=== PATIENT | female | born 1950 | race Caucasian/White ===

== ENCOUNTER 2018-05-23 10:33 | Emergency (ER) | payer MEDICARE, OTHER ==
--- NOTE | 2018-05-23 11:03 | ED ---
HPI Chest Pain - HPI Summary HPI Summary: Pt is a 68 y/o female who presents to the ED c/o CP. Shes had intermittent central CP since yesterday, that radiates to her back and left arm. The pain is described as heaviness. Pt also c/o hot flashes and burping described as indigestion. Pts father of [place] at 42 y/o. She is a former smoker. Pt denies taking any medications. PMHx HLD. - History of Current Complaint Chief Complaint: EDChestPainROMI Time Seen by Provider: 05/23/18 10:42 Hx Obtained From: Patient Onset/Duration: Started Days Ago - 1, Still Present Timing: Intermittent Current Severity: Moderate Pain Intensity: 3 Pain Scale Used: 0-10 Numeric Chest Pain Location: Mid Sternal Chest Pain Radiates: Yes Chest Pain Radiates To:: Back, Arm - left Character: Heaviness Associated Signs and Symptoms: Positive: Other: - burping, hot flashes - Allergy/Home Medications Allergies/Adverse Reactions: Allergies Allergy/AdvReac Type Severity Reaction Status Date / Time No Known Allergies Allergy Verified 05/23/18 10:37 PMH/Surg Hx/FS Hx/Imm Hx Endocrine/Hematology History: Denies: Hx Diabetes Cardiovascular History: Reports: Hx Hypercholesterolemia Denies: Hx Hypertension Infectious Disease History: No Infectious Disease History: Denies: Traveled Outside the [place] in Last 30 Days - Family History Known Family History: Positive: Cardiac Disease - [place] - Social History Alcohol Use: Occasionally Hx Substance Use: No Substance Use Type: Reports: None Hx Tobacco Use: Yes Smoking Status (MU): Former Smoker Review of Systems Positive: Other - Hot flashes Positive: Chest Pain Positive: Other - indigestion, burping All Other Systems Reviewed And Are Negative: Yes Physical Exam - Summary Physical Exam Summary: Appearance: The patient is well-nourished in no acute distress and in no acute pain. Skin: The skin is warm and dry and skin color reflects adequate perfusion. HEENT: The head is normocephalic and atraumatic. The pupils are equal and reactive. The conjunctivae are clear and without drainage. Nares are patent and without drainage. Mouth reveals moist mucous membranes and the throat is without erythema and exudate. The external ears are intact. The ear canals are patent and without drainage. The tympanic membranes are intact. Neck: The neck is supple with full range of motion and non-tender. There are no carotid bruits. There is no neck vein distension. Respiratory: Chest is non-tender. Lungs are clear to auscultation and breath sounds are symmetrical and equal. Cardiovascular: Heart is regular rate and rhythm. There is no murmur or rub auscultated. There is no peripheral edema and pulses are symmetrical and equal. Abdomen: The abdomen is soft. There are normal bowel sounds heard in all four quadrants and there is no organomegaly palpated. Mild epigastric tenderness. Musculoskeletal: There is no back tenderness noted. Extremities are non-tender with full range of motion. There is good capillary refill. There is no peripheral edema or calf tenderness elicited. Neurological: Patient is alert and oriented to person, place and time. The patient has symmetrical motor strength in all four extremities. Cranial nerves are grossly intact. Deep tendon reflexes are symmetrical and equal in all four extremities. Psychiatric: The patient has an appropriate affect and does not exhibit any anxiety or depression. Triage Information Reviewed: Yes Vital Signs On Initial Exam: Initial Vitals Temp Pulse Resp BP Pulse Ox 97.8 F 109 17 178/104 100 05/23/18 10:34 05/23/18 10:34 05/23/18 10:34 05/23/18 10:34 05/23/18 10:34 Vital Signs Reviewed: Yes Diagnostics - Vital Signs Vital Signs Temp Pulse Resp BP Pulse Ox 05/23/18 10:34 97.8 F 109 17 178/104 100 - Laboratory Result Diagrams: 05/23/18 10:58 05/23/18 10:58 Lab Statement: Any lab studies that have been ordered have been reviewed, and results considered in the medical decision making process. - Radiology CXR Radiology Interpretation Completed By: Radiologist Summary of Radiographic Findings: NO ACTIVE CARDIOPULMONARY DISEASE. ED physician reviewed radiology report. - CT Chest/Thorax CTA CT Interpretation Completed By: Radiologist Summary of CT Findings: 1. NO PULMONARY ARTERIAL FILLING DEFECT TO SUGGEST PULMONARY EMBOLISM. 2. EMPHYSEMA. ED physician has reviewed radiology report. - EKG 10:43 Cardiac Rate: NL - 98 bpm EKG Rhythm: Sinus Rhythm Summary of EKG Findings: Normal sinus rhythm, normal ST, no ectopy, no STEMI Chest Pain Course/Dx - Course Course Of Treatment: Ms. Tejada presented complaining of about a day of epigastric and anterior chest pain and heaviness. She doesn't describe any exacerbating or relieving factors or associated symptoms. She does state that she has a lot of burping. On presentation. She is nontoxic in appearance and her vital signs are stable. EKG is obtained and is within normal limits. Labs are unremarkable including a d-dimer and a delayed troponin. CT was obtained because the pain goes into her back and was negative for any dissection. I think this is likely a reflux associated pain and recommended to her that we try a few days of sucralfate to see if it makes a difference. In any case she will follow-up with her PCP. - Diagnoses Provider Diagnoses: Chest pain Discharge - Sign-Out/Discharge Documenting (check all that apply): Patient Departure - Discharge - Discharge Plan Condition: Stable Disposition: HOME Prescriptions: Sucralfate SUSP 1 gm PO QID ACHS #200 ml Patient Education Materials: Chest Pain (ED) Referrals: Tiffany Ryan MD [Primary Care Provider] - (2-3 days) Additional Instructions: RETURN TO THE ED WITH ANY NEW OR WORSENING SYMPTOMS. - Billing Disposition and Condition Condition: STABLE Disposition: Home - Attestation Statements Document Initiated by Scribe: Yes Documenting Scribe: Eboni Arizmendi Provider For Whom Scribe is Documenting (Include Credential): Roger Galarza MD Scribe Attestation: Eboni Lr scribed for Roger Galarza MD on 05/23/18 at 1601. Scribe Documentation Reviewed: Yes Provider Attestation: The documentation as recorded by the Eboni you accurately reflects the service I personally performed and the decisions made by me, Roger Galarza MD Status of Scribe Document: Viewed
[2018-05-23 11:09] LABS: ABS Basophils 0 10^3/ul (0-0.2); ABS Eosinophils 0.2 10^3/ul (0-0.6); ABS Lymphocytes 1.9 10^3/ul (1.0-4.8); ABS Monocytes 0.5 10^3/ul (0-0.8); ABS Neutrophils 3.3 10^3/ul (1.5-7.7); ABS Nucleated RBC 0 10^3/ul; Eosinophil % 2.6 %; Hematocrit 46 % (35-47); Hemoglobin 15.4 g/dl (12.0-16.0); Lymphocyte % 32.1 %; Mean Corpuscular HGB Conc 34 g/dl (31-36); Mean Corpuscular Hemoglobin 33 pg (27-31); Mean Corpuscular Volume 99 fL (80-97); Mean Platelet Volume 8.1 fL (7.4-10.4); Nucleated Red Blood Cells % 0; Platelet Count 258 10^3/ul (150-450); Red Blood Count 4.64 10^6/ul (4.00-5.40); Red Cell Distribution Width 14 % (10.5-15); White Blood Count 5.8 10^3/ul (3.5-10.8)
[2018-05-23 11:18] LABS: INR 0.87 (0.77-1.02)
[2018-05-23 11:32] LABS: EGFR Non-African American 64.7 (>60)
[2018-05-23] MEDS ORDERED: Iohexol 350* (CONTRAST) 500 ML MDV IV ONE (13:23)
[2018-05-23 14:39] LABS: Urine Appearance Clear; Urine Blood Negative (Negative); Urine Color Straw; Urine Ketones Negative (Negative); Urine Protein Negative (Negative); Urine Specific Gravity 1.005 (1.010-1.030); Urine Urobilinogen Negative (Negative)
[2018-05-23 15:27] VITALS: BP 133/80
== END 2018-05-23 15:29 | disposition home or self-care (01) ==
LOC: ED 10:33
DX: R07.9 Chest pain, unspecified (principal); E78.5 Hyperlipidemia, unspecified; Z82.49 Family history of ischemic heart disease and other diseases of the circulatory system; Z87.891 Personal history of nicotine dependence; E78.00 Pure hypercholesterolemia, unspecified
CPT/HCPCS: 36415; 71045; 71275; 80053; 81003; 83605; 83690; 83735; 83880; 84484; 85025; 85379; 85610; 85730; 86850; 86900; 86901; 87040; 93005; 96374; 99283; Q9967